=== PATIENT | male | born 1955 | race Caucasian/White ===

== ENCOUNTER 2020-10-28 11:34 | Inpatient (IN) | payer MEDICARE, OTHER ==
[~2020-10-28] VITALS: Ht 175.3 cm; Wt 99.1 kg
[2020-10-28 15:01] LABS: BASOPHILS # (AUTO) 0.1 X10'3 (0-0.2); BASOPHILS % (AUTO) 0.9 % (0-1); EOSINOPHILS # (AUTO) 0.1 X10'3 (0-0.9); EOSINOPHILS % (AUTO) 0.4 % (0-6); HEMATOCRIT 38.1 % (42.0-52.0); HEMOGLOBIN 12.2 g/dl (14.0-17.9); LYMPHOCYTES # (AUTO) 2.9 X10'3 (1.1-4.8); MEAN CORPUSCULAR HEMOGLOBIN 29.7 PG (27.0-31.0); MEAN CORPUSCULAR HGB CONC 32.1 g/dL (33.0-36.5); MEAN CORPUSCULAR VOLUME 92.5 FL (78-98); MEAN PLATELET VOLUME 9.1 FL (7.4-10.4); MONOCYTES # (AUTO) 1.7 X10'3 (0-0.9); MONOCYTES % (AUTO) 10.2 % (2-12); NEUTROPHILS # (AUTO) 11.4 X10'3 (1.8-7.7); NEUTROPHILS % (AUTO) 70.5 % (42-75); PLATELET COUNT 332 X10'3 (140-440); RED BLOOD COUNT 4.12 X10'6 (4.70-6.10); RED CELL DISTRIBUTION WIDTH 15.6 % (11.5-14.5); WHITE BLOOD COUNT 16.1 X10'3 (4.5-11.0)
[2020-10-28] MEDS ORDERED: calcium chloride 100 MG/1 ML inj IV ONE (15:05)
--- NOTE | 2020-10-28 15:10 | NUR ---
PT'S HR IS 39, NOTIFY DR SIERRA. WILL ORDER CALCIUM AND TRANSFER PT TO ROOM 5.
[2020-10-28 15:34] LABS: ALANINE AMINOTRANSFERASE 56 U/L (12-78); ALBUMIN 3.4 G/DL (3.4-5.0); ALBUMIN/GLOBULIN RATIO 0.7 (1.1-1.5); ALKALINE PHOSPHATASE 196 IU/L (46-116); ANION GAP 9 (8-16); ASPARTATE AMINO TRANSFERASE 58 U/L (10-37); BILIRUBIN,TOTAL 0.7 MG/DL (0.1-1.0); BLOOD UREA NITROGEN 27 MG/DL (7-18); BUN/CREATININE RATIO 14.8 (5.4-32.0); CALCIUM 9.1 MG/DL (8.5-10.1); CHLORIDE 97 MMOL/L (99-107); CREATININE 1.82 MG/DL (0.60-1.10); GLUCOSE 308 MG/DL (70-104); POTASSIUM 4.5 MMOL/L (3.5-5.1); SODIUM 133 MMOL/L (135-145); TOTAL CARBON DIOXIDE 27.1 MMOL/L (24-32); eGFR 37 ML/MIN
[2020-10-28] MEDS ORDERED: ondansetron/PF 4mg/2ml inj IV ONE ×2 (15:40)
[2020-10-28 15:44] LABS: MAGNESIUM 2.2 MG/DL (1.5-2.4)
[2020-10-28] MEDS ORDERED: SERT-434 PO (16:51)
[2020-10-28] MEDS ORDERED: MAGN400C PO (16:51)
[2020-10-28] MEDS ORDERED: AMIO200T62 PO (16:51)
[2020-10-28] MEDS ORDERED: SPIR25TA5 PO (16:51)
[2020-10-28] MEDS ORDERED: LOSA25TA96 PO (16:51)
[2020-10-28] MEDS ORDERED: TRAZ-251 PO (16:51)
[2020-10-28] MEDS ORDERED: METF-436 PO (16:51)
[2020-10-28] MEDS ORDERED: METO50TA7 PO (16:51)
[2020-10-28] MEDS ORDERED: TORS20TA3 PO (16:51)
[2020-10-28] MEDS ORDERED: ASPI-611 PO (16:51)
[2020-10-28] MEDS ORDERED: CHOL20004 PO (16:51)
[2020-10-28] MEDS ORDERED: ATOR40TA PO (16:51)
[2020-10-28] MEDS ORDERED: FAMO20TA82 PO (16:51)
[2020-10-28] MEDS ORDERED: ALBU18HF2 INH (16:51)
[2020-10-28] MEDS ORDERED: HUM10VIA SQ (16:51)
[2020-10-28] MEDS ORDERED: RIVA20TA PO (16:51)
[2020-10-28] MEDS ORDERED: magnesium 4gm in 100ml NS 100 ML IV PRN (16:55)
[2020-10-28] MEDS ORDERED: magnesium 2GM in 50ml NS 50 ML IV PRN (16:55)
[2020-10-28] MEDS ORDERED: ondansetron/PF 4mg/2ml inj IV PRN (16:55)
[2020-10-28] MEDS ORDERED: acetaminophen 325mg tablet PO PRN (16:55)
[2020-10-28] MEDS ORDERED: potassium Cl 20 mEq SR tablet PO PRN ×2 (16:55)
[2020-10-28] MEDS ORDERED: magnesium Cl slow-release 64mg tablet PO PRN (16:55)
[2020-10-28] MEDS ORDERED: potassium Cl 40MEQ/1/2NS 520ml 520 ML IV PRN ×2 (16:55)
[2020-10-28 17:18] LABS: CLARITY,URINE SLIGHTLY CLOUDY (Clear); COLOR,URINE STRAW (Yellow); GLUCOSE, URINE 250 mg/dl (Neg); KETONES,URINE NEGATIVE (Neg); LEUKOCYTE ESTERASE ,URINE NEGATIVE (Neg); NITRITES, URINE NEGATIVE (Neg); OCCULT BLOOD,URINE NEGATIVE (Neg); PROTEIN,URINE TRACE mg/dl (Neg); UROBILINOGEN,URINE 0.2 E.U/dL (0.2-1.0)
[2020-10-28 17:20] LABS: UA COLLECTION TYPE CLN CATCH MIDSTREAM
[2020-10-28 17:25] LABS: MUCUS STRANDS FEW /LPF (Neg); SQUAMOUS EPITHELIAL CELL,UR FEW /LPF (FEW); TRANSITIONAL EPI CELLS,URINE FEW /HPF
[2020-10-28 17:26] LABS: AMORPHOUS URATES 1+; BACTERIA,URINE NONE SEEN /HPF (Neg); RBC,URINE 0-2 /HPF (0-2); WBC,URINE NONE SEEN /HPF (0-4)
[2020-10-28] MEDS ORDERED: albuterol 2.5 MG/3 ML nebule NEB PRN (18:25)
[2020-10-28] MEDS: K and/or MAG REPLACEMENT MC SCH (20:00)
[2020-10-28] MEDS: famotidine 20mg tablet PO SCH (20:08)
[2020-10-28] MEDS: rivaroxaban 20mg tablet PO SCH (20:08)
[2020-10-28] MEDS: losartan 25mg tablet PO SCH (20:09)
[2020-10-28] MEDS: HumuLIN NPH/Reg 70/30 insulin 10ml vial SQ SCH (20:10)
[2020-10-28 20:44] VITALS: BP 136/65
[2020-10-28] MEDS ORDERED: traZODone 50mg tablet PO PRN (21:00)
[2020-10-28 22:00] VITALS: BP 127/69
[2020-10-28] MEDS ORDERED: FLU VACC QS2020-21(6MOS UP)/PF 60 MCG/0.5 ML SYRINGE IMVAC ONE (22:15)
--- NOTE | 2020-10-28 23:43 | NUR ---
Called Dr. Mahan regarding the patient's bradycardia going down as low as 28-29bpm. He acknowledged it, BUT no orders were given at this time.
[2020-10-29 02:00] VITALS: BP 115/62
[2020-10-29 03:03] LABS: BASOPHILS # (AUTO) 0.1 X10'3 (0-0.2); BASOPHILS % (AUTO) 0.5 % (0-1); EOSINOPHILS # (AUTO) 0.1 X10'3 (0-0.9); EOSINOPHILS % (AUTO) 0.5 % (0-6); LYMPHOCYTES # (AUTO) 2.5 X10'3 (1.1-4.8); LYMPHOCYTES % (AUTO) 17.7 % (21-51); MEAN CORPUSCULAR HEMOGLOBIN 29.6 PG (27.0-31.0); MEAN CORPUSCULAR HGB CONC 32.4 g/dL (33.0-36.5); MEAN CORPUSCULAR VOLUME 91.3 FL (78-98); MEAN PLATELET VOLUME 9.4 FL (7.4-10.4); MONOCYTES # (AUTO) 1.6 X10'3 (0-0.9); MONOCYTES % (AUTO) 11.3 % (2-12); NEUTROPHILS # (AUTO) 9.8 X10'3 (1.8-7.7); PLATELET COUNT 292 X10'3 (140-440); RED BLOOD COUNT 3.73 X10'6 (4.70-6.10); RED CELL DISTRIBUTION WIDTH 15.6 % (11.5-14.5)
[2020-10-29 03:13] LABS: ALBUMIN 2.9 G/DL (3.4-5.0); ANION GAP 9 (8-16); BLOOD UREA NITROGEN 31 MG/DL (7-18); BUN/CREATININE RATIO 15.2 (5.4-32.0); CALCIUM 9.3 MG/DL (8.5-10.1); CHLORIDE 99 MMOL/L (99-107); CREATININE 2.04 MG/DL (0.60-1.10); GLUCOSE 296 MG/DL (70-104); POTASSIUM 4.5 MMOL/L (3.5-5.1); SODIUM 134 MMOL/L (135-145); TOTAL CARBON DIOXIDE 26.1 MMOL/L (24-32); eGFR 33 ML/MIN
[2020-10-29 06:00] VITALS: BP 115/71
--- NOTE | 2020-10-29 06:20 | NUR ---
Patient in room MED 315. I have received report from CHEO LORA and had the opportunity to ask questions and assume patient care.
--- NOTE | 2020-10-29 06:29 | NUR ---
Problems reprioritized. Patient report given, questions answered & plan of care reviewed with Carlotta.
[2020-10-29] MEDS: atorvastatin 20mg tablet PO SCH (08:00)
[2020-10-29] MEDS: aspirin 81mg tablet.DR PO SCH (08:00)
[2020-10-29] MEDS: cholecalciferol (vitamin D3) 1,000 unit (25mcg) tablet PO SCH (08:00)
[2020-10-29] MEDS: magnesium oxide 400mg tablet PO SCH (08:00)
[2020-10-29] MEDS: spironolactone 25 MG tablet PO SCH (08:00)
[2020-10-29] MEDS: HumuLIN NPH/Reg 70/30 insulin 10ml vial SQ SCH ×2 (08:00→20:48)
[2020-10-29] MEDS: TORSEMIDE 20 MG PO SCH (08:00)
[2020-10-29] MEDS: famotidine 20mg tablet PO SCH ×2 (08:00→20:44)
[2020-10-29] MEDS: losartan 25mg tablet PO SCH ×2 (08:00→20:00)
[2020-10-29] MEDS: sertraline 50mg tablet PO SCH (08:00)
--- NOTE | 2020-10-29 08:00 | NUR ---
MONITER SHOWS PT HEART RATE 28-36 ,WITH FREQ 3-4 SEC PAUSES ATRIAL FLUTTER WITH VARIABLE CONDUCTION, BP Q15 CONT STABLE, PT ALERT AND ORIENTED PT PLACED ON 2L N/C RUSS RUST PAGED WITH ABOVE INFO,INCLUDING TAVR 10/25 AT [facility],REQUEST SENT FOR RECORDS THERE AFTER RUSS EATON
[2020-10-29] MEDS: K and/or MAG REPLACEMENT MC SCH ×2 (08:21→20:00)
[2020-10-29 10:00] VITALS: BP 119/53
[2020-10-29 14:00] VITALS: BP 120/62
[2020-10-29] MEDS: rivaroxaban 20mg tablet PO SCH (17:45)
[2020-10-29 18:00] VITALS: BP 121/51
--- NOTE | 2020-10-29 18:15 | NUR ---
Problems reprioritized. Patient report given, questions answered & plan of care reviewed with CHEO LORA.
[2020-10-29 22:00] VITALS: BP 136/70
[2020-10-30 02:00] VITALS: BP 141/78
--- NOTE | 2020-10-30 06:18 | NUR ---
Problems reprioritized. Patient report given, questions answered & plan of care reviewed with Pat-RN].
[2020-10-30 06:30] VITALS: BP 135/78
[2020-10-30 07:29] LABS: BASOPHILS % (AUTO) 0.4 % (0-1); EOSINOPHILS # (AUTO) 0.2 X10'3 (0-0.9); EOSINOPHILS % (AUTO) 1.9 % (0-6); HEMATOCRIT 32.6 % (42.0-52.0); HEMOGLOBIN 10.9 g/dl (14.0-17.9); LYMPHOCYTES # (AUTO) 2.3 X10'3 (1.1-4.8); MEAN CORPUSCULAR HEMOGLOBIN 30.2 PG (27.0-31.0); MEAN CORPUSCULAR HGB CONC 33.4 g/dL (33.0-36.5); MEAN CORPUSCULAR VOLUME 90.4 FL (78-98); MEAN PLATELET VOLUME 9.2 FL (7.4-10.4); MONOCYTES # (AUTO) 1.6 X10'3 (0-0.9); MONOCYTES % (AUTO) 14.3 % (2-12); NEUTROPHILS # (AUTO) 6.8 X10'3 (1.8-7.7); NEUTROPHILS % (AUTO) 62.4 % (42-75); PLATELET COUNT 293 X10'3 (140-440); RED BLOOD COUNT 3.61 X10'6 (4.70-6.10); RED CELL DISTRIBUTION WIDTH 15.6 % (11.5-14.5); WHITE BLOOD COUNT 10.9 X10'3 (4.5-11.0)
[2020-10-30 07:41] LABS: ALBUMIN 2.8 G/DL (3.4-5.0); ANION GAP 8 (8-16); BLOOD UREA NITROGEN 36 MG/DL (7-18); BUN/CREATININE RATIO 21.2 (5.4-32.0); CALCIUM 9.3 MG/DL (8.5-10.1); CHLORIDE 101 MMOL/L (99-107); GLUCOSE 231 MG/DL (70-104); SODIUM 137 MMOL/L (135-145); TOTAL CARBON DIOXIDE 28.4 MMOL/L (24-32); eGFR 40 ML/MIN
[2020-10-30] MEDS: losartan 25mg tablet PO SCH ×2 (08:00→19:16)
[2020-10-30] MEDS: TORSEMIDE 20 MG PO SCH (08:00)
[2020-10-30] MEDS: HumuLIN NPH/Reg 70/30 insulin 10ml vial SQ SCH (08:00)
[2020-10-30] MEDS: K and/or MAG REPLACEMENT MC SCH ×2 (08:00→20:00)
[2020-10-30] MEDS: spironolactone 25 MG tablet PO SCH (08:00)
[2020-10-30] MEDS: famotidine 20mg tablet PO SCH ×2 (08:43→19:16)
[2020-10-30] MEDS: magnesium oxide 400mg tablet PO SCH (08:43)
[2020-10-30] MEDS: atorvastatin 20mg tablet PO SCH (08:43)
[2020-10-30] MEDS: sertraline 50mg tablet PO SCH (08:44)
[2020-10-30] MEDS: cholecalciferol (vitamin D3) 1,000 unit (25mcg) tablet PO SCH (08:44)
[2020-10-30] MEDS: aspirin 81mg tablet.DR PO SCH (08:53)
[2020-10-30 11:00] VITALS: BP 143/69
--- NOTE | 2020-10-30 14:00 | NUR ---
PATIENT ON HOME DOSE OF NPH ; HOWEVER, BS REMAIN HIGH. CALL PLACED INTO DR. BENITES WITH REQUEST FOR HYPERGLYCEMIC PROTOCOL. ORDERS RECEIVED AND NOTED.PACER PADS REMAIN ON.PATIENT'S HEART RATE IN 40'S ;. PATIENT REMAINS ASYMPTOMATIC . WILL CONTINUE TO ASSESS. Addendum: 10/30/20 at 2030 by Eufemia Jade RN Amended: Links added.
[2020-10-30] MEDS ORDERED: glucagon, human recombinant 1mg kit SUBCUT PRN (14:25)
[2020-10-30] MEDS ORDERED: MESSAGE TO PHARMACY PO ONE (14:25)
[2020-10-30] MEDS ORDERED: dextrose 50%-water 50ml dispensing syringe IV PRN ×2 (14:25)
[2020-10-30] MEDS ORDERED: dextrose ORAL solution 15 GM/59 ML bottle PO PRN ×2 (14:25)
[2020-10-30] MEDS ORDERED: insulin regular, human U-100 3ml vial - multi-dose SQ SCH (14:25)
[2020-10-30 15:00] VITALS: BP 141/75
[2020-10-30 15:01] LABS: HEMOGLOBIN A1C 8.9 % (4.5-6.2)
[2020-10-30 18:00] VITALS: BP 147/82
[2020-10-30] MEDS: insulin Lispro (HumaLOG) vial - multi-dose SQ SCH (19:20)
[2020-10-30] MEDS: rivaroxaban 20mg tablet PO SCH (19:20)
[2020-10-30] MEDS: insulin glargine (Lantus) pen - multi-dose SQ SCH (21:51)
[2020-10-30 22:00] VITALS: BP 138/75
[2020-10-31] VITALS (7 sets, daily range): BP systolic 114–153; BP diastolic 49–79
[2020-10-31 06:00] LABS: BASOPHILS # (AUTO) 0.1 X10'3 (0-0.2); BASOPHILS % (AUTO) 0.9 % (0-1); EOSINOPHILS # (AUTO) 0.3 X10'3 (0-0.9); EOSINOPHILS % (AUTO) 2.7 % (0-6); HEMATOCRIT 33.5 % (42.0-52.0); HEMOGLOBIN 11.2 g/dl (14.0-17.9); LYMPHOCYTES % (AUTO) 19.5 % (21-51); MEAN CORPUSCULAR HEMOGLOBIN 30.2 PG (27.0-31.0); MEAN CORPUSCULAR HGB CONC 33.4 g/dL (33.0-36.5); MEAN CORPUSCULAR VOLUME 90.4 FL (78-98); MEAN PLATELET VOLUME 9.5 FL (7.4-10.4); MONOCYTES # (AUTO) 1.4 X10'3 (0-0.9); MONOCYTES % (AUTO) 13.2 % (2-12); NEUTROPHILS # (AUTO) 6.6 X10'3 (1.8-7.7); NEUTROPHILS % (AUTO) 63.7 % (42-75); PLATELET COUNT 266 X10'3 (140-440); RED BLOOD COUNT 3.71 X10'6 (4.70-6.10); RED CELL DISTRIBUTION WIDTH 15.6 % (11.5-14.5); WHITE BLOOD COUNT 10.3 X10'3 (4.5-11.0)
--- NOTE | 2020-10-31 06:05 | NUR ---
Patient in room MED 315. I have received report from CHEO Hester and had the opportunity to ask questions and assume patient care.
[2020-10-31 06:12] LABS: ALBUMIN 2.6 G/DL (3.4-5.0); ANION GAP 10 (8-16); BLOOD UREA NITROGEN 32 MG/DL (7-18); BUN/CREATININE RATIO 23.2 (5.4-32.0); CALCIUM 8.5 MG/DL (8.5-10.1); CHLORIDE 103 MMOL/L (99-107); CREATININE 1.38 MG/DL (0.60-1.10); GLUCOSE 134 MG/DL (70-104); POTASSIUM 3.7 MMOL/L (3.5-5.1); SODIUM 140 MMOL/L (135-145); TOTAL CARBON DIOXIDE 27.1 MMOL/L (24-32); eGFR 51 ML/MIN
--- NOTE | 2020-10-31 06:13 | NUR ---
Problems reprioritized. Patient report given, questions answered & plan of care reviewed with Ananya.
--- NOTE | 2020-10-31 06:32 | NUR ---
Patient in room MED 315. I have received report from CHEO Hester and had the opportunity to ask questions and assume patient care.
[2020-10-31] MEDS: K and/or MAG REPLACEMENT MC SCH ×2 (08:00→20:00)
[2020-10-31] MEDS: spironolactone 25 MG tablet PO SCH (08:00)
[2020-10-31] MEDS: losartan 25mg tablet PO SCH ×2 (08:00→19:51)
[2020-10-31] MEDS: TORSEMIDE 20 MG PO SCH (08:00)
[2020-10-31] MEDS: famotidine 20mg tablet PO SCH ×2 (08:21→19:48)
[2020-10-31] MEDS: cholecalciferol (vitamin D3) 1,000 unit (25mcg) tablet PO SCH (08:22)
[2020-10-31] MEDS: atorvastatin 20mg tablet PO SCH (08:22)
[2020-10-31] MEDS: aspirin 81mg tablet.DR PO SCH (08:22)
[2020-10-31] MEDS: magnesium oxide 400mg tablet PO SCH (08:22)
[2020-10-31] MEDS: sertraline 50mg tablet PO SCH (08:22)
[2020-10-31] MEDS: insulin Lispro (HumaLOG) vial - multi-dose SQ SCH ×3 (09:13→19:15)
--- NOTE | 2020-10-31 10:31 | NUR ---
MD Mohan notified promotional table spacer PAGER ID: [phone] MESSAGE: KINSEY RomeroArtur curry [address] Pt has had a heart rate 44-60 this morning BP 123/55. He has Aldactone 25 mg and Cozaar 50mg ordered daily would you like me to hold these medications? Thank you. CHEO Irizarry ex [phone]
[2020-10-31] MEDS ORDERED: losartan 25mg tablet PO ONE (10:40)
[2020-10-31] MEDS ORDERED: spironolactone 25 MG tablet PO ONE (10:40)
--- NOTE | 2020-10-31 10:46 | NUR ---
Md Mohan gave one time verbal order of 12.5 mg aldactone po once and cozaar 25 mg po Once. Will monitor blood continue to monitor blood pressure manual was 121/52.
[2020-10-31] MEDS ORDERED: magnesium hydroxide 30ml (MOM) UD suspension PO PRN (10:55)
[2020-10-31] MEDS ORDERED: lactulose 20gm/30ml cup PO PRN (10:55)
--- NOTE | 2020-10-31 11:49 | NUR ---
MD Mohan notified PAGER ID: [phone] MESSAGE: Artur Dyer [id number] pharmacy called to ask about torsemide 20mg tab. This is pts own med, pharmacy does not stock would you like to sub for to Lasix? Thank you. CHEO Irizarry ex [phone]
--- NOTE | 2020-10-31 16:05 | NUR ---
DM consult: Noted pt A1c 8.9. RD international project engineer visited pt at bedside for written and verbal DM education. Pt provided with RD contact information. Pt reported checking his BG every morning, taking his medications regularly, and sees his PCP as regularly as he can. Pt reports living with family while he recuperates and they typically eat meat, vegetables, and potatoes. Pt reports enjoying sweets. Discussed eating sweets with meals and balancing carbs with the items in the meal. Will continue to follow. Addendum: 10/31/20 at [address] Amended: Links added. Addendum: 10/31/20 at [address] RD agrees w/ above paid intern note.
--- NOTE | 2020-10-31 17:29 | NUR ---
Patient needs cath consent for AM and NPO status at midnight.
--- NOTE | 2020-10-31 18:00 | NUR ---
Patient in room MED 315. I have received report from CHEO Corbett and had the opportunity to ask questions and assume patient care.
--- NOTE | 2020-10-31 18:12 | NUR ---
Problems reprioritized. Patient report given,CHEO Langford questions answered & plan of care reviewed with .
--- NOTE | 2020-10-31 18:25 | NUR ---
Orientee documentation: I have reviewed and agree with all interventions, assessments performed and documented by CHEO Irizarry.
[2020-10-31] MEDS: docusate sod 100mg capsule PO SCH (19:44)
--- NOTE | 2020-10-31 20:00 | NUR ---
RN withheld lozartan due to pt having consistent low heart rate
[2020-10-31] MEDS: insulin glargine (Lantus) pen - multi-dose SQ SCH (21:24)
[2020-11-01] VITALS (18 sets, daily range): BP systolic 113–150; BP diastolic 52–82
[2020-11-01] MEDS ORDERED: ceFAZolin 1000mg inj ONE (06:00)
[2020-11-01] MEDS ORDERED: ceFAZolin 2gm in dextrose, iso 50 ML IV ONE (06:00)
[2020-11-01] MEDS ORDERED: fentaNYL/PF 50MCG/1 ML 2ML syringe ONE (06:00)
[2020-11-01] MEDS ORDERED: midazolam 1 mg/ML 2ml injection ONE (06:00)
[2020-11-01] MEDS ORDERED: LIDOcaine 1% W/epiNEPHrine 1:100,000 20ml vial ONE (06:00)
--- NOTE | 2020-11-01 06:00 | NUR ---
Problems reprioritized. Patient report given, questions answered & plan of care reviewed with CHEO Rivera.
--- NOTE | 2020-11-01 06:15 | NUR ---
Patient in room MED 315. I have received report from CHEO Langford and had the opportunity to ask questions and assume patient care.
[2020-11-01] MEDS: TORSEMIDE 20 MG PO SCH (08:00)
[2020-11-01] MEDS: K and/or MAG REPLACEMENT MC SCH ×2 (08:00→20:00)
[2020-11-01 08:20] LABS: BASOPHILS % (AUTO) 0.4 % (0-1); EOSINOPHILS # (AUTO) 0.2 X10'3 (0-0.9); EOSINOPHILS % (AUTO) 1.6 % (0-6); HEMATOCRIT 36.5 % (42.0-52.0); HEMOGLOBIN 11.8 g/dl (14.0-17.9); LYMPHOCYTES # (AUTO) 4.1 X10'3 (1.1-4.8); LYMPHOCYTES % (AUTO) 31.1 % (21-51); MEAN CORPUSCULAR HEMOGLOBIN 29.7 PG (27.0-31.0); MEAN CORPUSCULAR HGB CONC 32.4 g/dL (33.0-36.5); MEAN CORPUSCULAR VOLUME 91.6 FL (78-98); MEAN PLATELET VOLUME 8.9 FL (7.4-10.4); MONOCYTES # (AUTO) 1.3 X10'3 (0-0.9); MONOCYTES % (AUTO) 9.7 % (2-12); NEUTROPHILS # (AUTO) 7.6 X10'3 (1.8-7.7); NEUTROPHILS % (AUTO) 57.2 % (42-75); PLATELET COUNT 343 X10'3 (140-440); RED BLOOD COUNT 3.98 X10'6 (4.70-6.10); RED CELL DISTRIBUTION WIDTH 15.6 % (11.5-14.5); WHITE BLOOD COUNT 13.3 X10'3 (4.5-11.0)
[2020-11-01 08:42] LABS: ANION GAP 12 (8-16); BLOOD UREA NITROGEN 26 MG/DL (7-18); BUN/CREATININE RATIO 15.7 (5.4-32.0); CALCIUM 9.1 MG/DL (8.5-10.1); CHLORIDE 102 MMOL/L (99-107); CREATININE 1.66 MG/DL (0.60-1.10); GLUCOSE 208 MG/DL (70-104); POTASSIUM 3.7 MMOL/L (3.5-5.1); SODIUM 141 MMOL/L (135-145); TOTAL CARBON DIOXIDE 26.8 MMOL/L (24-32); eGFR 42 ML/MIN
[2020-11-01] MEDS: docusate sod 100mg capsule PO SCH ×2 (08:50→21:55)
[2020-11-01] MEDS: aspirin 81mg tablet.DR PO SCH (08:50)
[2020-11-01] MEDS: cholecalciferol (vitamin D3) 1,000 unit (25mcg) tablet PO SCH (08:51)
[2020-11-01] MEDS: spironolactone 25 MG tablet PO SCH (08:51)
[2020-11-01] MEDS: atorvastatin 20mg tablet PO SCH (08:51)
[2020-11-01] MEDS: famotidine 20mg tablet PO SCH ×2 (08:52→21:55)
[2020-11-01] MEDS: losartan 25mg tablet PO SCH ×2 (08:52→21:55)
[2020-11-01] MEDS: sertraline 50mg tablet PO SCH (08:52)
[2020-11-01] MEDS: insulin Lispro (HumaLOG) vial - multi-dose SQ SCH ×3 (08:59→18:58)
--- NOTE | 2020-11-01 12:05 | NUR ---
PAGER ID: [phone] MESSAGE: Artur Freeman Room 315. Per pharmacy, pt own medication torsemide not available, can they substitute with Lasix? Thanks, Robyn [phone]
[2020-11-01] MEDS: magnesium oxide 400mg tablet PO SCH (14:46)
[2020-11-01] MEDS: ceFAZolin/D5W- 1GM premix 50 ML IV SCH (16:42)
--- NOTE | 2020-11-01 18:31 | NUR ---
Problems reprioritized. Patient report given, questions answered & plan of care reviewed with CHEO Arce.
[2020-11-01] MEDS: insulin glargine (Lantus) pen - multi-dose SQ SCH (22:07)
--- NOTE | 2020-11-02 00:33 | NUR ---
PAGER ID: [phone] MESSAGE: 315amcarlos Siddiqui--sbp > 160's; prn med please?
[2020-11-02] MEDS: ceFAZolin/D5W- 1GM premix 50 ML IV SCH ×2 (01:03→08:00)
[2020-11-02 06:00] VITALS: BP 166/87
--- NOTE | 2020-11-02 06:05 | NUR ---
Patient in room MED 315. I have received report from CHEO Acre and had the opportunity to ask questions and assume patient care.
[2020-11-02 06:20] LABS: ALBUMIN 2.7 G/DL (3.4-5.0); ANION GAP 7 (8-16); BLOOD UREA NITROGEN 21 MG/DL (7-18); BUN/CREATININE RATIO 14.8 (5.4-32.0); CALCIUM 8.7 MG/DL (8.5-10.1); CHLORIDE 104 MMOL/L (99-107); CREATININE 1.42 MG/DL (0.60-1.10); GLUCOSE 148 MG/DL (70-104); MAGNESIUM 2.1 MG/DL (1.5-2.4); POTASSIUM 4.4 MMOL/L (3.5-5.1); SODIUM 140 MMOL/L (135-145); TOTAL CARBON DIOXIDE 29.4 MMOL/L (24-32); eGFR 50 ML/MIN
[2020-11-02 06:24] LABS: BASOPHILS % (AUTO) 0.4 % (0-1); EOSINOPHILS # (AUTO) 0.2 X10'3 (0-0.9); EOSINOPHILS % (AUTO) 2.3 % (0-6); HEMATOCRIT 34.3 % (42.0-52.0); HEMOGLOBIN 11.3 g/dl (14.0-17.9); LYMPHOCYTES # (AUTO) 1.9 X10'3 (1.1-4.8); LYMPHOCYTES % (AUTO) 18.5 % (21-51); MEAN CORPUSCULAR HEMOGLOBIN 29.7 PG (27.0-31.0); MEAN CORPUSCULAR HGB CONC 32.9 g/dL (33.0-36.5); MEAN CORPUSCULAR VOLUME 90.1 FL (78-98); MEAN PLATELET VOLUME 8.3 FL (7.4-10.4); MONOCYTES # (AUTO) 1.3 X10'3 (0-0.9); MONOCYTES % (AUTO) 12.2 % (2-12); NEUTROPHILS # (AUTO) 6.9 X10'3 (1.8-7.7); NEUTROPHILS % (AUTO) 66.6 % (42-75); PLATELET COUNT 280 X10'3 (140-440); RED CELL DISTRIBUTION WIDTH 15.2 % (11.5-14.5); WHITE BLOOD COUNT 10.3 X10'3 (4.5-11.0)
[2020-11-02] MEDS: TORSEMIDE 20 MG PO SCH (08:00)
[2020-11-02] MEDS: K and/or MAG REPLACEMENT MC SCH ×2 (08:00→20:00)
[2020-11-02] MEDS: magnesium oxide 400mg tablet PO SCH (08:00)
[2020-11-02] MEDS: docusate sod 100mg capsule PO SCH ×2 (08:18→19:01)
[2020-11-02] MEDS: atorvastatin 20mg tablet PO SCH (08:18)
[2020-11-02] MEDS: famotidine 20mg tablet PO SCH ×2 (08:19→19:01)
[2020-11-02] MEDS: sertraline 50mg tablet PO SCH (08:19)
[2020-11-02] MEDS: cholecalciferol (vitamin D3) 1,000 unit (25mcg) tablet PO SCH (08:19)
[2020-11-02] MEDS: aspirin 81mg tablet.DR PO SCH (08:19)
[2020-11-02] MEDS: losartan 25mg tablet PO SCH ×2 (08:21→19:02)
[2020-11-02 08:23] VITALS: BP 146/80
[2020-11-02] MEDS: spironolactone 25 MG tablet PO SCH (08:24)
--- NOTE | 2020-11-02 08:35 | NUR ---
held 0800 Ancef - 3rd dose d/t parameters, verified with pharmacy. parameters: hold 3rd dose if more than 24 hour post procedure.
--- NOTE | 2020-11-02 11:09 | NUR ---
Initial: Pt admit for symptomatic bradycardia. Pt s/p pacemaker placement 10/31. Pt on a CHO controlled diet and eating well with documented with 75-100% PO intake throughout LOS. LBM 11/01, receiving routine and PRN bowel care. No nutrition intervention warranted at this time. Will continue to follow. Recommendations: 1) Continue CHO controlled diet 2) Routine bowel care 3) Scaled weight this admit; routine scaled weights thereafter Addendum: 11/02/20 at [address] Amended: Links added.
[2020-11-02 12:00] VITALS: BP 141/80
--- NOTE | 2020-11-02 12:25 | NUR ---
Confirmed with Dr Kimberlee mcduffei to D/C home medication, torsemide, for the duration of stay. May resume home medication upon D/C.
[2020-11-02] MEDS: insulin Lispro (HumaLOG) vial - multi-dose SQ SCH ×2 (14:00→19:00)
[2020-11-02 15:00] VITALS: BP 142/87
[2020-11-02 18:00] VITALS: BP 147/92
--- NOTE | 2020-11-02 18:02 | NUR ---
Patient in room MED 315. I have received report from Robyn GRIDER and had the opportunity to ask questions and assume patient care.
--- NOTE | 2020-11-02 18:18 | NUR ---
Problems reprioritized. Patient report given, questions answered & plan of care reviewed with CHEO Arce.
[2020-11-02] MEDS: insulin glargine (Lantus) pen - multi-dose SQ SCH (21:19)
[2020-11-02 22:00] VITALS: BP 157/91
[2020-11-03 02:00] VITALS: BP 160/93
--- NOTE | 2020-11-03 02:17 | NUR ---
PAGER ID: [phone] MESSAGE: [address] ALEX GRACE- SBP 160/93-S/P TAVR-NO PRN FOR BP; PACEMAKER ITCHES; BENEDRYL PLEASE? THANKS IRMA GAITAN [phone]
[2020-11-03] MEDS ORDERED: diphenhydrAMINE 25mg capsule PO PRN ×2 (02:20→02:25)
--- NOTE | 2020-11-03 05:06 | NUR ---
DR. RAMIREZ PAGED-PATIENT HR IN 120/130'S; AFLUTTER, PACER NOT FIRING. PATIENT STATED HE IS A BIT [id number], HAS TO USE URINAL. PATIENT LYING IN BED, ASYMPTOMATIC OTHERWISE. AWAITING CALL BACK FROM DR. RAMIREZ. Addendum: 11/03/20 at 0632 by Yazmin Damon RN SECOND PAGE OUT TO DR. RAMIREZ REGARDING HR IN 120/130'S SUSTAINED. INFORMED EXCHANGE TO CONTACT ROXANE GRIDER FOR ANY NEW ORDERS. DOMINGUEZ GRIDER
[2020-11-03 06:00] VITALS: BP 163/115
--- NOTE | 2020-11-03 07:30 | NUR ---
heart rate still in the 120's Afib flutter, patient appears in no acute distress. Message left to Dr Mohan.
--- NOTE | 2020-11-03 07:40 | NUR ---
Dr Mohan called back with new orders.
[2020-11-03] MEDS: losartan 25mg tablet PO SCH ×2 (07:46→19:47)
[2020-11-03] MEDS: sertraline 50mg tablet PO SCH (07:46)
[2020-11-03] MEDS: cholecalciferol (vitamin D3) 1,000 unit (25mcg) tablet PO SCH (07:47)
[2020-11-03] MEDS: spironolactone 25 MG tablet PO SCH (07:47)
[2020-11-03] MEDS: aspirin 81mg tablet.DR PO SCH (07:47)
[2020-11-03] MEDS: famotidine 20mg tablet PO SCH ×2 (07:47→19:46)
[2020-11-03] MEDS: atorvastatin 20mg tablet PO SCH (07:48)
[2020-11-03] MEDS: docusate sod 100mg capsule PO SCH ×2 (07:48→19:46)
[2020-11-03] MEDS ORDERED: metoprolol tartrate 25mg tablet PO ONE ×2 (07:50→20:00)
[2020-11-03] MEDS: magnesium oxide 400mg tablet PO SCH (07:59)
[2020-11-03] MEDS: K and/or MAG REPLACEMENT MC SCH ×2 (08:00→20:00)
--- NOTE | 2020-11-03 08:00 | NUR ---
Dr michele called back and informed him that patient's HR is in the 120's Mehreen pittman and that Dr Mohan ordered metoprolol to be given. Addendum: 11/03/20 at 1757 by Mary Melara RN No new orders given.
--- NOTE | 2020-11-03 08:00 | NUR ---
Juvencio from [facility] was called and pacemaker check was requested, juvencio came and pacemaker was checked and is functioning well.
[2020-11-03] MEDS ORDERED: potassium Cl 40MEQ/1/2NS 520ml 520 ML IV PRN (08:10)
[2020-11-03] MEDS ORDERED: potassium Cl 20mEq/100mL bag 100 ML IV PRN (08:10)
[2020-11-03] MEDS ORDERED: potassium Cl 40MEQ/250ML bag 250 ML IV PRN (08:10)
[2020-11-03] MEDS ORDERED: magnesium 4gm in 100ml NS 100 ML IV PRN (08:10)
[2020-11-03] MEDS ORDERED: potassium Cl 20 mEq SR tablet PO PRN (08:10)
[2020-11-03] MEDS ORDERED: magnesium 2GM in 50ml NS 50 ML IV PRN (08:10)
[2020-11-03] MEDS ORDERED: potassium CL 10mEq/100ml bag 100 ML IV PRN (08:10)
[2020-11-03 08:22] LABS: BASOPHILS % (AUTO) 0.4 % (0-1); EOSINOPHILS # (AUTO) 0.4 X10'3 (0-0.9); EOSINOPHILS % (AUTO) 4.8 % (0-6); HEMATOCRIT 33.2 % (42.0-52.0); LYMPHOCYTES % (AUTO) 21.1 % (21-51); MEAN CORPUSCULAR HEMOGLOBIN 29.8 PG (27.0-31.0); MEAN CORPUSCULAR HGB CONC 33.1 g/dL (33.0-36.5); MEAN PLATELET VOLUME 8.5 FL (7.4-10.4); MONOCYTES # (AUTO) 1.3 X10'3 (0-0.9); MONOCYTES % (AUTO) 13.6 % (2-12); NEUTROPHILS # (AUTO) 5.6 X10'3 (1.8-7.7); NEUTROPHILS % (AUTO) 60.1 % (42-75); PLATELET COUNT 259 X10'3 (140-440); RED BLOOD COUNT 3.69 X10'6 (4.70-6.10); RED CELL DISTRIBUTION WIDTH 15.2 % (11.5-14.5); WHITE BLOOD COUNT 9.4 X10'3 (4.5-11.0)
[2020-11-03 08:30] LABS: ALANINE AMINOTRANSFERASE 42 U/L (12-78); ALBUMIN 2.6 G/DL (3.4-5.0); ALBUMIN/GLOBULIN RATIO 0.7 (1.1-1.5); ALKALINE PHOSPHATASE 142 IU/L (46-116); ANION GAP 7 (8-16); ASPARTATE AMINO TRANSFERASE 21 U/L (10-37); BILIRUBIN,TOTAL 0.5 MG/DL (0.1-1.0); BLOOD UREA NITROGEN 17 MG/DL (7-18); CALCIUM 8.5 MG/DL (8.5-10.1); CHLORIDE 105 MMOL/L (99-107); CREATININE 1.42 MG/DL (0.60-1.10); GLUCOSE 165 MG/DL (70-104); SODIUM 141 MMOL/L (135-145); TOTAL CARBON DIOXIDE 28.7 MMOL/L (24-32); TOTAL PROTEIN 6.2 G/DL (6.4-8.2); eGFR 50 ML/MIN
[2020-11-03 11:00] VITALS: BP 128/83
[2020-11-03] MEDS: insulin Lispro (HumaLOG) vial - multi-dose SQ SCH ×2 (14:03→19:24)
[2020-11-03 19:00] VITALS: BP 138/80
[2020-11-03] MEDS: rivaroxaban 20mg tablet PO SCH (19:29)
[2020-11-03] MEDS: insulin glargine (Lantus) pen - multi-dose SQ SCH (21:43)
[2020-11-03 22:00] VITALS: BP 137/83
[2020-11-04] MEDS ORDERED: metoprolol tartrate 1mg/ml inj IV ONE (01:35)
[2020-11-04 02:00] VITALS: BP 138/96
[2020-11-04] MEDS ORDERED: metoprolol succinate 25mg (24-HOUR) SR. Tablet PO ONE (05:25)
[2020-11-04 06:00] VITALS: BP 128/95
[2020-11-04 06:24] LABS: BASOPHILS % (AUTO) 0.5 % (0-1); EOSINOPHILS # (AUTO) 0.5 X10'3 (0-0.9); EOSINOPHILS % (AUTO) 5.5 % (0-6); HEMATOCRIT 34.4 % (42.0-52.0); HEMOGLOBIN 11.3 g/dl (14.0-17.9); LYMPHOCYTES # (AUTO) 1.9 X10'3 (1.1-4.8); LYMPHOCYTES % (AUTO) 21.2 % (21-51); MEAN CORPUSCULAR HEMOGLOBIN 29.5 PG (27.0-31.0); MEAN CORPUSCULAR HGB CONC 32.9 g/dL (33.0-36.5); MEAN CORPUSCULAR VOLUME 89.8 FL (78-98); MEAN PLATELET VOLUME 8.3 FL (7.4-10.4); MONOCYTES # (AUTO) 1.1 X10'3 (0-0.9); MONOCYTES % (AUTO) 12.3 % (2-12); NEUTROPHILS # (AUTO) 5.4 X10'3 (1.8-7.7); NEUTROPHILS % (AUTO) 60.5 % (42-75); PLATELET COUNT 263 X10'3 (140-440); RED BLOOD COUNT 3.83 X10'6 (4.70-6.10); RED CELL DISTRIBUTION WIDTH 15.5 % (11.5-14.5); WHITE BLOOD COUNT 8.9 X10'3 (4.5-11.0)
[2020-11-04 06:41] LABS: ALANINE AMINOTRANSFERASE 33 U/L (12-78); ALBUMIN 2.6 G/DL (3.4-5.0); ALBUMIN/GLOBULIN RATIO 0.7 (1.1-1.5); ALKALINE PHOSPHATASE 145 IU/L (46-116); ANION GAP 10 (8-16); ASPARTATE AMINO TRANSFERASE 23 U/L (10-37); BILIRUBIN,TOTAL 0.5 MG/DL (0.1-1.0); BLOOD UREA NITROGEN 17 MG/DL (7-18); BUN/CREATININE RATIO 12.2 (5.4-32.0); CALCIUM 8.4 MG/DL (8.5-10.1); CHLORIDE 102 MMOL/L (99-107); CREATININE 1.39 MG/DL (0.60-1.10); GLUCOSE 184 MG/DL (70-104); MAGNESIUM 2.1 MG/DL (1.5-2.4); POTASSIUM 4.2 MMOL/L (3.5-5.1); SODIUM 138 MMOL/L (135-145); TOTAL CARBON DIOXIDE 26.1 MMOL/L (24-32); TOTAL PROTEIN 6.5 G/DL (6.4-8.2); eGFR 51 ML/MIN
--- NOTE | 2020-11-04 07:50 | NUR ---
Dr Mohan notified, pacer sensing at rate of 120's afib. He called Danette AQUINO and she will be in shortly to see pt. Strips printed. Pt denies cp or palpitations or sob. Giving metoprolol this am. vss.
[2020-11-04] MEDS: K and/or MAG REPLACEMENT MC SCH ×2 (08:00→20:00)
[2020-11-04] MEDS ORDERED: metoprolol succinate 25mg (24-HOUR) SR. Tablet PO SCH (08:00)
[2020-11-04] MEDS: aspirin 81mg tablet.DR PO SCH (08:00)
[2020-11-04] MEDS: sertraline 50mg tablet PO SCH (08:00)
[2020-11-04] MEDS: losartan 25mg tablet PO SCH ×2 (08:00→19:52)
[2020-11-04] MEDS: docusate sod 100mg capsule PO SCH ×2 (08:00→19:50)
[2020-11-04] MEDS: cholecalciferol (vitamin D3) 1,000 unit (25mcg) tablet PO SCH (08:01)
[2020-11-04] MEDS: atorvastatin 20mg tablet PO SCH (08:01)
[2020-11-04] MEDS: spironolactone 25 MG tablet PO SCH (08:01)
[2020-11-04] MEDS: magnesium oxide 400mg tablet PO SCH (08:01)
[2020-11-04] MEDS: famotidine 20mg tablet PO SCH ×2 (08:01→19:51)
[2020-11-04] MEDS: cephalexin 500mg capsule PO SCH ×2 (09:15→19:50)
[2020-11-04 11:00] VITALS: BP 119/84
[2020-11-04] MEDS: metoprolol succinate 25mg (24-HOUR) SR. Tablet PO SCH (11:13)
--- NOTE | 2020-11-04 14:00 | NUR ---
Per Dr Nory Samaniego not concerned about pacer rate. Metoprolol given with no effect this am.
[2020-11-04] MEDS: insulin Lispro (HumaLOG) vial - multi-dose SQ SCH ×2 (14:18→19:49)
[2020-11-04 15:00] VITALS: BP 140/87
[2020-11-04] MEDS: piperacillin/tazo 4.5gm/100ml 100 ML IV SCH (15:55)
[2020-11-04] MEDS: rivaroxaban 20mg tablet PO SCH (17:24)
[2020-11-04] MEDS: amiodarone 200mg tablet PO SCH (17:24)
--- NOTE | 2020-11-04 17:30 | NUR ---
Heart rate still almost 120, v paced. Amiodarone started per Dr Mohan.
[2020-11-04 18:00] VITALS: BP 123/86
--- NOTE | 2020-11-04 18:00 | NUR ---
Patient in room MED 315. I have received report from CHEO Estrada and had the opportunity to ask questions and assume patient care.
[2020-11-04] MEDS: lactobacillus rhamnosus 10,000 MMU CELLS/CAPSULE PO SCH (19:50)
[2020-11-04] MEDS: insulin glargine (Lantus) pen - multi-dose SQ SCH (21:48)
[2020-11-04 22:00] VITALS: BP 125/81
[2020-11-05] MEDS: piperacillin/tazo 4.5gm/100ml 100 ML IV SCH (00:04)
[2020-11-05 02:00] VITALS: BP 148/103
[2020-11-05 06:06] LABS: BASOPHILS # (AUTO) 0.1 X10'3 (0-0.2); BASOPHILS % (AUTO) 0.7 % (0-1); EOSINOPHILS # (AUTO) 0.6 X10'3 (0-0.9); EOSINOPHILS % (AUTO) 5.3 % (0-6); HEMATOCRIT 35.8 % (42.0-52.0); HEMOGLOBIN 11.6 g/dl (14.0-17.9); LYMPHOCYTES # (AUTO) 2.7 X10'3 (1.1-4.8); LYMPHOCYTES % (AUTO) 25.2 % (21-51); MEAN CORPUSCULAR HEMOGLOBIN 29.3 PG (27.0-31.0); MEAN CORPUSCULAR HGB CONC 32.5 g/dL (33.0-36.5); MEAN PLATELET VOLUME 8.6 FL (7.4-10.4); MONOCYTES # (AUTO) 1.4 X10'3 (0-0.9); MONOCYTES % (AUTO) 13.2 % (2-12); NEUTROPHILS % (AUTO) 55.6 % (42-75); PLATELET COUNT 294 X10'3 (140-440); RED BLOOD COUNT 3.97 X10'6 (4.70-6.10); RED CELL DISTRIBUTION WIDTH 15.4 % (11.5-14.5); WHITE BLOOD COUNT 10.8 X10'3 (4.5-11.0)
[2020-11-05 06:21] LABS: ALANINE AMINOTRANSFERASE 37 U/L (12-78); ALBUMIN 2.7 G/DL (3.4-5.0); ALBUMIN/GLOBULIN RATIO 0.7 (1.1-1.5); ALKALINE PHOSPHATASE 160 IU/L (46-116); ANION GAP 9 (8-16); ASPARTATE AMINO TRANSFERASE 31 U/L (10-37); BILIRUBIN,TOTAL 0.5 MG/DL (0.1-1.0); BLOOD UREA NITROGEN 22 MG/DL (7-18); BUN/CREATININE RATIO 15.1 (5.4-32.0); CALCIUM 8.7 MG/DL (8.5-10.1); CHLORIDE 104 MMOL/L (99-107); CREATININE 1.46 MG/DL (0.60-1.10); GLUCOSE 149 MG/DL (70-104); POTASSIUM 4.6 MMOL/L (3.5-5.1); SODIUM 137 MMOL/L (135-145); TOTAL CARBON DIOXIDE 24.5 MMOL/L (24-32); TOTAL PROTEIN 6.7 G/DL (6.4-8.2); eGFR 48 ML/MIN
--- NOTE | 2020-11-05 06:31 | NUR ---
Problems reprioritized. Patient report given, questions answered & plan of care reviewed with CHEO Henriquez.
[2020-11-05] MEDS: K and/or MAG REPLACEMENT MC SCH (08:00)
[2020-11-05] MEDS ORDERED: DOXYCYCLINE 100MG CAPSULE PO SCH (08:30)
[2020-11-05] MEDS: cholecalciferol (vitamin D3) 1,000 unit (25mcg) tablet PO SCH (08:32)
[2020-11-05] MEDS: aspirin 81mg tablet.DR PO SCH (08:32)
[2020-11-05] MEDS: sertraline 50mg tablet PO SCH (08:32)
[2020-11-05] MEDS: losartan 25mg tablet PO SCH (08:33)
[2020-11-05] MEDS: metoprolol succinate 25mg (24-HOUR) SR. Tablet PO SCH (08:33)
[2020-11-05 08:34] VITALS: BP_SYST 124
[2020-11-05] MEDS: spironolactone 25 MG tablet PO SCH (08:34)
[2020-11-05] MEDS: magnesium oxide 400mg tablet PO SCH (08:34)
[2020-11-05] MEDS: lactobacillus rhamnosus 10,000 MMU CELLS/CAPSULE PO SCH (08:34)
[2020-11-05] MEDS: amiodarone 200mg tablet PO SCH (08:34)
[2020-11-05] MEDS: atorvastatin 20mg tablet PO SCH (08:34)
[2020-11-05] MEDS: docusate sod 100mg capsule PO SCH (08:35)
[2020-11-05] MEDS: famotidine 20mg tablet PO SCH (08:35)
[2020-11-05] MEDS: insulin Lispro (HumaLOG) vial - multi-dose SQ SCH ×2 (09:06→15:27)
[2020-11-05] MEDS ORDERED: LIDOcaine 1% W/epiNEPHrine 1:200,000 10ml vial IJ ONE (11:20)
[2020-11-05] MEDS ORDERED: DOXY-224 PO (14:20)
== END 2020-11-05 17:03 | disposition home or self-care (01) | DRG 242 ==
LOC: ER 11:36 → ED HOLD 16:54 → MED 3N 20:40
PROVIDERS: ADMIT Internal Medicine; ATTEND Internal Medicine
PROC: 0JH606Z Insertion of Pacemaker, Dual Chamber into Chest Subcutaneous Tissue and Fascia, Open Approach (ICD-10-PCS; 2020-11-01)
PROC: 02H63JZ Insertion of Pacemaker Lead into Right Atrium, Percutaneous Approach (ICD-10-PCS; 2020-11-01)
PROC: 02HK3JZ Insertion of Pacemaker Lead into Right Ventricle, Percutaneous Approach (ICD-10-PCS; 2020-11-01)
PROC: 4B02XSZ Measurement of Cardiac Pacemaker, External Approach (ICD-10-PCS; principal; 2020-11-04)
DX: R00.1 Bradycardia, unspecified (principal); J86.9 Pyothorax without fistula; N17.0 Acute kidney failure with tubular necrosis; I13.0 Hypertensive heart and chronic kidney disease with heart failure and stage 1 through stage 4 chronic kidney disease, or unspecified chronic kidney disease; I48.91 Unspecified atrial fibrillation; I48.92 Unspecified atrial flutter; I44.7 Left bundle-branch block, unspecified; E78.00 Pure hypercholesterolemia, unspecified; E78.5 Hyperlipidemia, unspecified; F32.9 Major depressive disorder, single episode, unspecified; G47.33 Obstructive sleep apnea (adult) (pediatric); I25.10 Atherosclerotic heart disease of native coronary artery without angina pectoris; I50.9 Heart failure, unspecified; J45.909 Unspecified asthma, uncomplicated; I35.0 Nonrheumatic aortic (valve) stenosis; N40.0 Benign prostatic hyperplasia without lower urinary tract symptoms; E11.22 Type 2 diabetes mellitus with diabetic chronic kidney disease; N18.30 Chronic kidney disease, stage 3 unspecified; G47.30 Sleep apnea, unspecified; R00.0 Tachycardia, unspecified; Z79.01 Long term (current) use of anticoagulants; Z79.4 Long term (current) use of insulin; Z79.899 Other long term (current) drug therapy; I25.2 Old myocardial infarction; Z80.0 Family history of malignant neoplasm of digestive organs; Z80.8 Family history of malignant neoplasm of other organs or systems; Z87.891 Personal history of nicotine dependence; Z95.2 Presence of prosthetic heart valve; Z88.5 Allergy status to narcotic agent; Z88.8 Allergy status to other drugs, medicaments and biological substances; Z79.82 Long term (current) use of aspirin; Z90.49 Acquired absence of other specified parts of digestive tract
CPT/HCPCS: 33208; 36415; 71045; 71250; 80048; 80053; 81001; 82948; 83036; 83735; 83880; 84145; 84439; 84443; 84484; 85025; 85610; 87070; 87075; 87081; 93005; 94760; 96374; 99152; 99153; 99285; A4565; A4620; A6258; C1785; C1898; G0378; J0690; J1815; J2250; J2405; J2543; J3010; J3490; Q0163